=== PATIENT | male | born 1950 | race Caucasian/White ===

== ENCOUNTER 2016-08-07 17:37 | Inpatient (IN) | payer OTHER ==
[~2016-08-07] VITALS: Ht 167.6 cm; Wt 135.5 kg
[2016-08-07] VITALS (12 sets, daily range): BP systolic 121–153; BP diastolic 55–108
--- NOTE | ~2016-08-07 | D ---
[facility] [place] [address] DISCHARGE SUMMARY Name: ALPHONSO DOWNS Room #: 459-P [facility] IN M.R.#: [id number] Admission: 08/07/16 Attend Phys: Patrick Engel MD Discharge: 08/11/16 Date of : 50 Report #: [id number] THIS REPORT FOR: //name// CC: Patrick Engel DATE OF SERVICE: 08/11/2016 FINAL DIAGNOSES: 1. Acute hypoxic hypercapnic respiratory failure. 2. Chronic obstructive pulmonary disease exacerbation. 3. Community-acquired pneumonia. 4. Diabetes type 2. 5. Atrial fibrillation. 6. Hypertension. 7. Morbid obesity. HOSPITAL COURSE: The patient was admitted with shortness of breath. He was admitted to ICU with hypercapnic hypoxic respiratory failure and required BiPAP as morbid obesity was contributing to some hypoventilation. Pulmonary service saw him and he is treated with antibiotics for a left lower lobe pneumonia, steroids, nebulized treatments and supportive measures. Other home medications were continued including Eliquis for his atrial fibrillation. He gradually improved and transferred up to the telemetry unit. He was beginning activity and was continued on pulmonary treatments. Had no other medical complications. DISPOSITION: He will be discharged to home with diabetic diet, activity as tolerated. Continue medications with 5 more days antibiotics and a prednisone taper, he require oxygen at home 4 liters of nasal cannula. Continue follow up with ct in 1-2 weeks and the Pulmonary service in 2 weeks. <ELECTRONICALLY SIGNED> By: Patrick Engel MD 08/13/16 1057 [id number] [id number] Patrick Engel MD /nt
--- NOTE | ~2016-08-07 | EKG ---
[address] [address] ELECTROCARDIOGRAM REPORT Name: ALPHONSO DOWNS Room #: 459-P ADM IN M.R.#: [id number] Admission: 08/07/16 Attend Phys: Patrick Engel MD Discharge: Date of : 50 Report #: [id number] THIS REPORT FOR: //name// [facility] ED Test Date: 2016-08-07 Test Time: 18:12:48 Pat Name: ALPHONSO DOWNS Department: Room: 459 Gender: M Clearance Cutter: MARNI : 1950 Requested By: Bg Spann Order Number: [id number] MD: Jas Rodriguez Measurements Intervals [place] Rate: 90 P: [place]: QRS: 36 QRSD: 83 T: 70 QT: 353 QTc: 432 Interpretive Statements Atrial fibrillation Anterior infarct, old Baseline wander in lead(s) V5 No previous ECG available for comparison Electronically Signed On 08-10-2016 13:03:01 CDT by Jas Rodriguez [email or web address] <ELECTRONICALLY SIGNED> By: Jas Rodriguez MD 08/10/16 1303 11 11 Jas Rodriguez MD /DALE
--- NOTE | ~2016-08-07 | H ---
[facility] [place] [address] HISTORY AND PHYSICAL Name: ALPHONSO DOWNS Room #: 459-P [facility] IN M.R.#: [id number] Admission: 08/07/16 Attend Phys: Patrick Engel MD Discharge: Date of : 50 Report #: [id number] THIS REPORT FOR: //name// CC: Patrick Engel DATE OF SERVICE: 08/07/2016 CHIEF COMPLAINT: Shortness of breath. HISTORY OF PRESENT ILLNESS: The patient is a 66-year-old gentleman who came in the Emergency Room with a 1-2 day history of shortness of breath. He was seen in the office yesterday by Dr. Holland and is noted to be hypoxic and appeared ill. He was directed to the Emergency Room. There, he was noted to have hypercapnic hypoxic respiratory failure. He is admitted to ICU overnight, placed on BiPAP. He is improved this morning. He is awake and alert. He has been eating, wearing nasal cannula. I discussed the case with Dr. Leiva. PAST MEDICAL HISTORY: COPD, diabetes type 2, coronary artery disease with remote history of stent. PAST SURGICAL HISTORY: Unknown. FAMILY HISTORY: Noncontributory. SOCIAL HISTORY: He is living at home. He has a 10-hcnh-xmcn history of smoking, but quit recently. No alcohol use. ALLERGIES: No known drug allergies. MEDICATIONS: Pradaxa, Lipitor, Coreg, NovoLog, tramadol, Levemir, Zestril. REVIEW OF SYSTEMS: He complains of headache. Denies chest pain, nausea, vomiting, diarrhea, constipation, dysuria, syncope. PHYSICAL EXAMINATION: VITAL SIGNS: Temperature 36.6, pulse 105, respirations 20, blood pressure 109/56, O2 sat 91% on 4-5 liters nasal cannula. GENERAL: He is awake and alert, oriented to place and situation, recognizes me. HEAD AND NECK: Unremarkable. LUNGS: Distant. There is some wheezing in the left base. HEART: Regular, no murmur. ABDOMEN: Obese, soft, normoactive bowel sounds. EXTREMITIES: No cyanosis, clubbing, 1+ edema. NEUROLOGIC: Motor strength 4/5 throughout. ELECTRONIC LAB AND RADIOLOGY DATA: Reviewed. [facility] [address] [place] [address] HISTORY AND PHYSICAL Name: ALPHONSO DOWNS Room #: 459-P [facility] IN ..#: [id number] Admission: 08/07/16 Attend Phys: Patrick Engel MD Discharge: Date of : 50 Report #: [id number] ASSESSMENT: 1. Acute hypercapnic hypoxic respiratory failure. 2. Community-acquired pneumonia. 3. Chronic obstructive pulmonary disease exacerbation due to the above. 4. Diabetes type 2. 5. Coronary artery disease. PLAN: We will continue ICU care, BiPAP is indicated, IV antibiotics are going. Dr. Leiva has assessed his case. Lovenox for DVT prophylaxis. <ELECTRONICALLY SIGNED> By: Patrick Engel MD 08/09/16 1125 1327 [id number] Patrick Engel MD /alex
--- NOTE | ~2016-08-07 | HC ---
[facility] [place] [address] CONSULTATION Name: RIGO DOWNS Room #: 459-P [facility] IN M.R.#: [id number] Admission: 08/07/16 Attend Phys: Patrick Engel MD Discharge: 08/11/16 Date of : 50 Report #: [id number] THIS REPORT FOR: //name// CC: Enrico Engel DATE OF SERVICE: 08/07/2016 REFERRING PROVIDER: Dr. Enrico Holland. REASON FOR CONSULTATION: Hypercapnic respiratory failure. CHIEF COMPLAINT: Shortness of breath. HISTORY OF PRESENT ILLNESS: Our group was asked to see the patient in consultation while hospitalized at [facility]. Daughter and are at the bedside and provide a reasonable history. The patient is a little bit confused and having some difficulty, although he is arousable, he is very somnolent. Apparently, he has had about 3-4 weeks of increasing cough and shortness of breath, cough productive of thick arredondo sputum. Denies any fevers, chills or sweats. He has had some increasing exertional dyspnea. The patient has a known history of COPD; at one point was on Spiriva daily, but stopped that several years ago. The patient is an active smoker, still smoking off and on according to the family and has a very long history of tobacco use. He has supplemental oxygen concentrator at home, which he does not use and may possibly have sleep apnea as well, although has never been fully evaluated for this. Because of increasing symptoms, presented to his primary care provider's office, was evaluated and a chest x-ray was performed which suggests a left lower lobe infiltrate. He was subsequently sent to the Emergency Department where he was found to be in hypercapnic and hypoxemic respiratory failure, initiated on noninvasive positive pressure, ventilation with BiPAP, given systemic steroids, bronchodilators and Rocephin and azithromycin and admitted for further management. Currently, he appears to be comfortable, in no distress with tidal volumes between 500 and 700 on BiPAP with a pressure of 16/8. He appears to be a reasonably comfortable. ALLERGIES: Include SHELLFISH, possibly AMOXICILLIN. PAST MEDICAL HISTORY: 1. History of coronary artery disease, status post multiple coronary stents. 2. Chronic obstructive pulmonary disease, severity not quantified. 3. History of pulmonary nodule with a negative biopsy in the past and stable findings noted on followup radiographs over a 2-year period by family report. 4. 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 [facility] [address] [place] [address] CONSULTATION Name: RIGO DOWNS Room #: 459-P [facility] IN M.R.#: [id number] Admission: 08/07/16 Attend Phys: Patrick Engel MD Discharge: 08/11/16 Date of : 50 Report #: [id number] 5. Paroxysmal atrial fibrillation. OUTPATIENT MEDICATIONS: Include tramadol, Pradaxa, atorvastatin, lisinopril, carvedilol, and insulin. SOCIAL HISTORY: The patient is an active tobacco user, quantification not certain at this time. No significant alcohol consumption. 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 FAMILY HISTORY: Difficult to obtain at this time due the patient's current status. REVIEW OF SYSTEMS: CONSTITUTIONAL: Some general malaise but no fevers or chills. ENT: No upper respiratory congestion, rhinorrhea or dysphagia noted. CARDIOVASCULAR: Known coronary artery disease. Denies any chest pain or palpitations. GASTROINTESTINAL: No nausea, vomiting, diarrhea, constipation or abdominal pain. GENITOURINARY: No dysuria, no frequency or hematuria. INTEGUMENT: No new rash. MUSCULOSKELETAL: No new joint pains or swelling. NEUROLOGIC: The patient with lower extremity peripheral neuropathy. Prior history of CVAs. PHYSICAL EXAMINATION: VITAL SIGNS: Afebrile, pulse 100, respiratory rate 16, blood pressure 121/62, oxygen saturation 95% on 50% FiO2, BiPAP of 16/8. GENERAL: This is an obese, somewhat appearing elderly male, somnolent, but arousable. ENT: Not assessed due to BiPAP in place. NECK: Thick, supple, no lymphadenopathy. Jugular venous pressure not elevated. LUNGS: Very diminished with prolonged expiratory phase and diffuse expiratory wheezes noted. No inspiratory crackles appreciated. CARDIOVASCULAR: Heart regular; I could not appreciate murmurs, although heart tones are distant. ABDOMEN: Obese, soft, nontender, no masses. EXTREMITIES: With 1+ edema, 2+ lower extremity, peripheral pulses in the posterior tibial area. INTEGUMENT: Without rash. LABORATORY DATA: White blood cell count 13,000, hemoglobin 17, hematocrit of 54, platelet count 173. Sodium 134, potassium 4.9, chloride 99, bicarbonate 34, BUN 12, creatinine 1.2, glucose 197, ALT 26, alkaline phosphatase 122, troponin [facility] [address] [place] [address] CONSULTATION Name: RIGO DOWNS Room #: 459-P [facility] IN M.R.#: [id number] Admission: 08/07/16 Attend Phys: Patrick Engel MD Discharge: 08/11/16 Date of : 50 Report #: [id number] less than 0.04, albumin normal. Arterial blood gas on BiPAP 24/10, revealed a pH of 7.25, pCO2 of 73, pO2 of 70, bicarbonate 31. INR 1.3. IMPRESSION: 1. Acute hypercapnic and hypoxemic respiratory failure, likely related to lower respiratory infections and exacerbation of chronic obstructive pulmonary disease. 2. Acute exacerbation of chronic obstructive pulmonary disease. 3. Left lower lobe retrocardiac infiltrate, likely community-acquired pneumonia. 4. Mild polycythemia suggestive of perhaps chronic hypoxemia. 5. Diabetes mellitus type 2. We will need to monitor more closely systemic steroids. 6. History of coronary artery disease. SUGGESTIONS: 1. Check TSH. 2. Systemic steroids with taper. 3. Continue Rocephin and azithromycin. 4. Frequent bronchodilators. 5. Continue noninvasive positive pressure ventilation. 6. Consider further evaluation for possible obstructive sleep apnea as an outpatient. 7. Follow up arterial blood gas and radiograph. 8. Sliding scale insulin. 9. Add Mucinex for airway clearance. One off BiPAP, consider mechanical airway clearance to measure such as flutter valve. 10. ICU care. 11. Additional recommendations to follow. Discussed at length with family, respiratory therapy, and nursing. Total critical care time 45 minutes, not including any interventional procedures. <ELECTRONICALLY SIGNED> By: Rigo Leiva MD 08/20/16 1806 [id number] 0119 Rigo Leiva MD /nt
[2016-08-07 18:05] LABS: ABG SAMPLE TYPE ARTERIAL; BE(vivo) -0.7 mmol/L (-2 to +3); HCO3 29.1 mmol/L (22.0-26.0); LACTATE 0.98 mmol/L (0.5-2.0); O2(CT) 22.8 mL/dL (15.0-23.0); O2Hb 89.7 % (92.0-98.0); PO2 76.8 mmHg (80.0-100.0); sO2 92.7 % (92.0-98.0); tCO2 31.2 mmol/L (24.0-30.0)
[2016-08-07 18:06] LABS: PCO2 68.8 mmHg (35.0-45.0); STICK SITE R.RADIAL; pH 7.244 (7.360-7.450)
[2016-08-07] MEDS ORDERED: ULTRAM 50MG TAB50 MG PO (18:08)
[2016-08-07 18:09] LABS: HEMATOCRIT 54.2 % (42.0-52.0); HEMOGLOBIN 17.7 gm/dL (14.0-18.0); MCH 28.2 pg (26.0-34.0); MCHC 32.7 g/dL (28.0-37.0); MCV 86.4 fL (80.0-100.0); PLATELET COUNT 173 thou/uL (150-400); RBC 6.27 mil/uL (4.50-6.00); RDW 15.6 % (10.5-14.5); WBC 12.7 thou/uL (4.0-11.0)
[2016-08-07] MEDS ORDERED: PRADAXA150 MG PO (18:09)
[2016-08-07 18:10] LABS: MANUAL DIFF YES
[2016-08-07 18:18] LABS: ANION GAP 1 mmol/L (7-16); BUN 12 mg/dL (7-18); CALCIUM 8.9 mg/dL (8.5-10.1); CHLORIDE 99 mmol/L (98-107); CO2 34 mmol/L (21-32); CREATININE 1.2 mg/dL (0.6-1.3); GLUCOSE 197 mg/dL (70-99); POTASSIUM 4.9 mmol/L (3.5-5.1); SODIUM 134 mmol/L (136-145)
[2016-08-07] MEDS ORDERED: NOVOLOG100 UNIT/1 SUBQ (18:18)
[2016-08-07] MEDS ORDERED: COREG25 MG PO (18:18)
[2016-08-07] MEDS ORDERED: LIPITOR10 MG PO (18:18)
[2016-08-07] MEDS ORDERED: LISINOPRIL5 MG PO (18:18)
[2016-08-07] MEDS ORDERED: LEVEMIR SUBQ (18:19)
[2016-08-07 18:26] LABS: ALBUMIN 3.5 g/dL (3.4-5.0); ALKALINE PHOSPHATASE 122 U/L (46-116); SGOT 19 U/L (15-37); SGPT 26 U/L (30-65); TOTAL BILIRUBIN 0.6 mg/dL (<0.1-1.0); TOTAL PROTEIN 7.7 g/dL (6.4-8.2); TROPONIN-I < 0.04 ng/mL (<0.04-0.07)
[2016-08-07 18:40] LABS: ABSOLUTE NEUTROPHILS 10.9 thou/uL (1.4-8.2); TOTAL CELL COUNT 100
[2016-08-07 19:05] LABS: APTT 45.7 Seconds (24.5-32.8); INR 1.3; PROTIME 13.6 Seconds (9.3-11.4)
[2016-08-07 19:48] LABS: ABG SAMPLE TYPE ARTERIAL; BE(vivo) 1.3 mmol/L (-2 to +3); HCO3 31.4 mmol/L (22.0-26.0); O2(CT) 21.6 mL/dL (15.0-23.0); O2Hb 88.8 % (92.0-98.0); PO2 70.2 mmHg (80.0-100.0); sO2 90.8 % (92.0-98.0); tCO2 33.6 mmol/L (24.0-30.0)
[2016-08-07 19:50] LABS: pH 7.251 (7.360-7.450)
[2016-08-07 19:57] LABS: Pressure Support 8 cm H20; STICK SITE R.RADIAL
[2016-08-08] VITALS (23 sets, daily range): BP systolic 83–140; BP diastolic 40–124
[2016-08-08 04:16] LABS: ABG SAMPLE TYPE ARTERIAL; BE(vivo) 0.2 mmol/L (-2 to +3); LACTATE 1.14 mmol/L (0.5-2.0); O2(CT) 21.6 mL/dL (15.0-23.0); O2Hb 87.8 % (92.0-98.0); PCO2 78.1 mmHg (35.0-45.0); PO2 61.5 mmHg (80.0-100.0); STICK SITE L.RADIAL; pH 7.217 (7.360-7.450); sO2 85.6 % (92.0-98.0); tCO2 33.4 mmol/L (24.0-30.0)
[2016-08-08 04:17] LABS: Pressure Support 8 cm H20
[2016-08-08 07:25] LABS: ABG SAMPLE TYPE ARTERIAL; BE(vivo) -0.6 mmol/L (-2 to +3); HCO3 28.9 mmol/L (22.0-26.0); LACTATE 1.24 mmol/L (0.5-2.0); O2(CT) 21.5 mL/dL (15.0-23.0); O2Hb 88.7 % (92.0-98.0); sO2 86.8 % (92.0-98.0); tCO2 30.9 mmol/L (24.0-30.0)
[2016-08-08 07:26] LABS: pH 7.252 (7.360-7.450)
[2016-08-08 07:27] LABS: ABG COMMENT BIPAP 20/8; STICK SITE L.RADIAL
[2016-08-09] VITALS (13 sets, daily range): BP systolic 95–140; BP diastolic 52–84
[2016-08-09 05:05] LABS: HEMATOCRIT 47.9 % (42.0-52.0); MCH 27.9 pg (26.0-34.0); MCHC 32.1 g/dL (28.0-37.0); MCV 86.7 fL (80.0-100.0); RBC 5.53 mil/uL (4.50-6.00); RDW 15.2 % (10.5-14.5); WBC 14.6 thou/uL (4.0-11.0)
[2016-08-09 05:15] LABS: CALCIUM 8.6 mg/dL (8.5-10.1); CREATININE 1.3 mg/dL (0.6-1.3); POTASSIUM 4.8 mmol/L (3.5-5.1)
[2016-08-09 05:25] LABS: HEMOGLOBIN 15.4 gm/dL (14.0-18.0)
[2016-08-09 05:53] LABS: ABG SAMPLE TYPE ARTERIAL; BE(vivo) 0.6 mmol/L (-2 to +3); LACTATE 1.66 mmol/L (0.5-2.0); O2(CT) 20.9 mL/dL (15.0-23.0); O2Hb 93.4 % (92.0-98.0); PCO2 55.4 mmHg (35.0-45.0); PO2 74.1 mmHg (80.0-100.0); pH 7.321 (7.360-7.450); sO2 93.6 % (92.0-98.0); tCO2 29.7 mmol/L (24.0-30.0)
[2016-08-10 03:06] VITALS: BP 122/55
[2016-08-10 04:32] LABS: HEMATOCRIT 49.2 % (42.0-52.0); HEMOGLOBIN 15.7 gm/dL (14.0-18.0); MCH 27.7 pg (26.0-34.0); MCHC 31.9 g/dL (28.0-37.0); RBC 5.66 mil/uL (4.50-6.00); RDW 15.4 % (10.5-14.5); WBC 14.6 thou/uL (4.0-11.0)
[2016-08-10 04:45] LABS: CALCIUM 8.7 mg/dL (8.5-10.1); CREATININE 1.4 mg/dL (0.6-1.3); POTASSIUM 4.9 mmol/L (3.5-5.1)
[2016-08-10 08:14] VITALS: BP 123/82
[2016-08-10 11:25] VITALS: BP 123/72
[2016-08-10 17:12] VITALS: BP 131/88
[2016-08-10 19:18] VITALS: BP 154/96
[2016-08-11 00:21] VITALS: BP 130/80
[2016-08-11 03:30] VITALS: BP 126/59
[2016-08-11 04:07] LABS: HEMOGLOBIN 15.7 gm/dL (14.0-18.0); MCH 27.9 pg (26.0-34.0); MCV 87.1 fL (80.0-100.0); RBC 5.62 mil/uL (4.50-6.00); RDW 15.3 % (10.5-14.5); WBC 13.5 thou/uL (4.0-11.0)
[2016-08-11 04:10] LABS: INFLUENZA B Negative (Negative); METAPNEUMOVIRUS Negative (Negative)
[2016-08-11 04:14] LABS: ANION GAP < 0 mmol/L (7-16); BUN 23 mg/dL (7-18); CALCIUM 8.6 mg/dL (8.5-10.1); CHLORIDE 102 mmol/L (98-107); CO2 37 mmol/L (21-32); CREATININE 1.3 mg/dL (0.6-1.3); GLUCOSE 267 mg/dL (70-99); POTASSIUM 4.8 mmol/L (3.5-5.1); SODIUM 138 mmol/L (136-145)
[2016-08-11 08:00] VITALS: BP 129/72
[2016-08-11] MEDS ORDERED: DOXYCYCLINE 10100 MG PO (08:08)
[2016-08-11] MEDS ORDERED: DUONEB 2.5-0.5 M3 ML INH (08:08)
[2016-08-11] MEDS ORDERED: MUCINEX TA600 MG/TA1 PO (08:09)
[2016-08-11] MEDS ORDERED: PREDNISONE 20 M20 M1 PO (08:09)
[2016-08-11 11:31] VITALS: BP 125/80
[2016-08-11 14:01] VITALS: BP 125/80
== END 2016-08-11 15:16 | disposition home or self-care (01) | DRG 871 ==
LOC: ER 17:37 → ICU 18:33 → EROBS 18:33 → ICU 21:09 → 4W 08-09 11:15
PROVIDERS: Internal Medicine Geriatric Medicine; Internal Medicine Pulmonary Disease; Physician Assistant
PROC: 5A09357 Assistance with Respiratory Ventilation, Less than 24 Consecutive Hours, Continuous Positive Airway Pressure (ICD-10-PCS; principal; 2016-08-07)
DX: A41.9 Sepsis, unspecified organism (principal); J18.9 Pneumonia, unspecified organism; J96.02 Acute respiratory failure with hypercapnia; J96.01 Acute respiratory failure with hypoxia; J44.1 Chronic obstructive pulmonary disease with (acute) exacerbation; Z68.42 Body mass index [BMI] 45.0-49.9, adult; E11.42 Type 2 diabetes mellitus with diabetic polyneuropathy; I25.10 Atherosclerotic heart disease of native coronary artery without angina pectoris; I48.0 Paroxysmal atrial fibrillation; F17.210 Nicotine dependence, cigarettes, uncomplicated; D75.1 Secondary polycythemia; E66.01 Morbid (severe) obesity due to excess calories; Z95.5 Presence of coronary angioplasty implant and graft; Z91.013 Allergy to seafood
CPT/HCPCS: 10045; 10203

== ENCOUNTER → 2016-08-23 | Outpatient (CLI) | payer OTHER ==
[~2016-08-23] MED LIST: COREG25 MG PO; DOXYCYCLINE 10100 MG PO; DUONEB 2.5-0.5 M3 ML INH; LEVEMIR SUBQ; LIPITOR10 MG PO; LISINOPRIL5 MG PO; MUCINEX TA600 MG/TA1 PO; NOVOLOG100 UNIT/1 SUBQ; PRADAXA150 MG PO; PREDNISONE 20 M20 M1 PO; ULTRAM 50MG TAB50 MG PO
== END ==
LOC: RAD 13:14
DX: R06.02 Shortness of breath (principal); R91.8 Other nonspecific abnormal finding of lung field; R91.1 Solitary pulmonary nodule

== ENCOUNTER → 2016-09-18 | Outpatient (CLI) | payer OTHER | LOC: CAT 11:02 | DX: I51.7 Cardiomegaly (principal); J44.9 Chronic obstructive pulmonary disease, unspecified ==

== ENCOUNTER → 2017-02-14 | Outpatient (CLI) | payer OTHER | LOC: RAD 12:31 | DX: J44.9 Chronic obstructive pulmonary disease, unspecified (principal) ==

== ENCOUNTER → 2018-06-24 | Outpatient (CLI) | payer OTHER | LOC: RAD 08:57 | DX: R06.00 Dyspnea, unspecified (principal); J44.1 Chronic obstructive pulmonary disease with (acute) exacerbation; I48.91 Unspecified atrial fibrillation ==